=== PATIENT | female | born 1975 | race Caucasian/White ===

== ENCOUNTER 2017-02-09 06:22 | Emergency (ER) | payer BC ==
[~2017-02-09] VITALS: Ht 165.1 cm; Wt 74.8 kg
== END 2017-02-09 07:46 | disposition short-term general hospital (02) ==
LOC: ER 06:22
DX: S93.402A Sprain of unspecified ligament of left ankle, initial encounter (principal); M72.2 Plantar fascial fibromatosis; Z79.899 Other long term (current) drug therapy; Z88.8 Allergy status to other drugs, medicaments and biological substances; X50.9XXA Other and unspecified overexertion or strenuous movements or postures, initial encounter